=== PATIENT | female | born 1995 | race Caucasian/White ===

== ENCOUNTER 2025-02-05 19:23 | Emergency (ER) | payer MEDICAID, OTHER ==
[~2025-02-05] VITALS: Ht 162.6 cm; Wt 80.0 kg
[2025-02-05 19:30] VITALS: O2SAT 95
[2025-02-05 21:41] LABS: BASOPHILS % 0.4 % (0.0-2.0); EOSINOPHILS % 0.8 % (0.0-5.0); LYMPHOCYTES % 19.8 % (20.0-50.0); MEAN PLATELET VOLUME 7.5 fl (7.4-10.4); MONOCYTES % 5.0 % (2.0-8.0); NEUTROPHILS % 74.0 % (40.0-76.0); PLATELET 360 x1000/uL (130-400); RED BLOOD CELL COUNT 3.13 mill/uL (4.2-5.4); RED CELL DISTRIBUTION WIDTH 18.7 % (11.6-14.6)
[2025-02-05 21:54] LABS: ADD RBC MORPHOLOGY YES
[2025-02-05 21:55] LABS: HCG SCREEN NEGATIVE
[2025-02-05 21:57] LABS: CREATININE 0.9 mg/dL (0.6-1.0)
[2025-02-05 21:58] LABS: ETHANOL BLOOD < 10 mg/dL (<10); UREA NITROGEN BLOOD 9 mg/dL (9-23)
[2025-02-05 21:59] LABS: HEMOGLOBIN. 6.5 g/dL (12.0-16.0)
[2025-02-05 22:00] LABS: ASPARTATE AMINOTRANSFERASE 26 IU/L (<34); BILIRUBIN DIRECT 0.1 mg/dL (<=3.0); BILIRUBIN TOTAL 0.4 mg/dL (0.1-1.0); HEMATOCRIT. 21.5 % (36.0-48.0); PROTEIN TOTAL 8.1 g/dL (6.0-8.3)
[2025-02-05 22:22] LABS: PLATELET ESTIMATE NORMAL
[2025-02-05 22:30] VITALS: TEMP 36.9
[2025-02-05 23:17] LABS: INR 0.9
[2025-02-06] MEDS: KETOROLAC 15MG/ML VIAL IM ONE (00:08)
[2025-02-06 00:21] VITALS: BP 116/66; PULSE 82; RESP 19; O2SAT 100
== END 2025-02-06 01:13 | disposition short-term general hospital (02) ==
LOC: ER 19:23 → CMPBEDREQ 02-06 08:55
DX: D64.9 Anemia, unspecified (principal)
CPT/HCPCS: 36430; 80076; 80048; 80320; 84703; 83690; 85025; 85610; 86850; 86900; 86901; 36415; 71045; 93005; 99285; 96372; J1885; 86920; G0480